=== PATIENT | female | born 1965 | race Caucasian/White ===

== ENCOUNTER 2016-08-12 11:12 | Emergency (ER) | payer SELFPAY ==
[~2016-08-12] VITALS: Ht 167.6 cm; Wt 115.0 kg
[~2016-08-12 11:12] MED LIST: ALEVE220 MG PO; ASPIRIN81 M2 PO; ATARAX,VISTARIL25 MG PO; ATIVAN0.5 MG PO; AUGMENTIN875 MG PO; Aspirin E.C. PO; BACTRIM,SEPT1 TABLET PO; BUSPIRONE; CARAFATE1 GM PO; CELEXA40 MG PO; CHLORDIAZEPOXIDE PO; CITALOPRAM HBR40 MG PO; ELIMITE 5% CREA60 GM TP; EXCEDRIN MIGRA1 EAC3 PO; FIORICET 50-301 EACH PO; GLUCOPHAGE500 MG PO; GLUCOVANCE 21 TABLET PO; GLUCOVANCE 51 TABLET PO; GLYBURIDE-METF1 EAC3 PO; Glucovance 5/500 PO; HYDROCHLOROTHIA50 MG PO; HYDROCODON-ACE1 EAC7 PO; INVOKANA100 MG PO; INVOKANA300 MG PO; LASIX40 MG PO; LEVAQUIN500 MG PO; LISINOPRIL40 MG PO; METFORMIN HCL500 MG PO; METOCLOPRAMIDE10 MG PO; NORCO 5/3251 TABLET PO; PANTOPRAZOLE SO40 MG PO; PREDNISONE50 MG PO; PROTONIX40 MG PO; REGLAN10 MG PO; SUCRALFATE1 GM PO; TRAZODONE HCL50 MG PO; VICTOZA 2-0.6 MG/0.1 SC; VIIBRYD10 MG PO; VITAMIN B122500 MCG PO; Zestril,Prinivil PO
[2016-08-12 12:11] LABS: HEMATOCRIT 38.7 % (36.0-46.0); MCH 28.6 PG (29.0-34.0); MCHC 32.8 G/DL (30.0-36.0); MCV 87.2 FL (83-99); MEAN PLAT.VOLUME 9.8 uM^3 (9.5-12.4); PLATELET COUNT 325 K/uL (156-360); RBC DIS.WIDTH-CV 12.8 % (11.8-14.6); RBC DIS.WIDTH-SD 40.6 % (39-53); RED BLOOD COUNT 4.44 M/uL (3.80-5.20); WHITE BLOOD COUNT 8.4 K/uL (4.1-10.2)
[2016-08-12 12:23] LABS: CHLORIDE 104 mEq/L (99-109); POTASSIUM 3.8 mEq/L (3.7-5.4); SODIUM 137 mEq/L (136-147)
[2016-08-12 12:25] LABS: GLUCOSE 221 mg/dL (70-99)
[2016-08-12 12:26] LABS: ANION GAP 13 MEQ/L (2-14)
[2016-08-12 12:29] LABS: GFR ESTIMATE (CALCULATED) > 59 mL/min/; UREA NITROGEN (BUN) 10 mg/dL (9-23)
[2016-08-12 12:52] LABS: ADD MIUA? NO; BILIRUBIN NEGATIVE; BLOOD NEGATIVE; COLOR STRAW ((YELLOW)); GLUCOSE (STRIP) >=500; KETONES NEGATIVE; LEUKOCYTES NEGATIVE; NITRITE NEGATIVE; PROTEIN (STRIP) NEGATIVE; SPECIFIC GRAVITY 1.036 (1.000-1.030); UCUL ADDED? NO; UROBILINOGEN 0.2 MG/DL (0.2-1.0)
[2016-08-12 13:18] LABS: TOTAL BILIRUBIN 0.4 mg/dL (0.0-1.0)
[2016-08-12 13:19] LABS: ALKALINE PHOSPHATASE 59 IU/L (3-129)
[2016-08-12 13:21] LABS: DIRECT BILIRUBIN 0.2 mg/dL (0.0-0.3)
[2016-08-12 13:23] LABS: LIPASE 22 U/L (1.0-51.0)
[2016-08-12 13:28] LABS: QUANTITATIVE HCG < 4.0 MIU/ML
[2016-08-12] MEDS ORDERED: BACTRIM,SEPT1 TABLET PO (14:16)
[2016-08-12] MEDS ORDERED: MORPHINE SULFAT15 MG PO (14:16)
[2016-08-12] MEDS ORDERED: MOBIC15 MG PO (14:16)
[2016-08-12 15:14] LABS: TROP-I INTERPRETATION NEGATIVE; TROPONIN-I < 0.01 ng/mL (0.0-0.30)
[2016-08-12 17:42] LABS: TROP-I INTERPRETATION NEGATIVE; TROPONIN-I < 0.01 ng/mL (0.0-0.30)
[2016-08-12 18:12] VITALS: BP 111/70
== END 2016-08-12 18:13 | disposition home or self-care (01) ==
LOC: EME 11:12
PROVIDERS: Emergency Medicine
DX: N12 Tubulo-interstitial nephritis, not specified as acute or chronic (principal); R07.89 Other chest pain; E11.65 Type 2 diabetes mellitus with hyperglycemia; K21.9 Gastro-esophageal reflux disease without esophagitis
CPT/HCPCS: 71020; 74176; 80048; 80076; 81003; 83690; 84484; 84702; 85027; 93005; 99281; 99285; J2270; J2405; J3010; S0028

== ENCOUNTER 2017-04-25 18:37 | Emergency (ER) | payer OTHER ==
[~2017-04-25] VITALS: Ht 167.6 cm; Wt 115.9 kg
[~2017-04-25 18:37] MED LIST changes: +MOBIC15 MG PO; +MORPHINE SULFAT15 MG PO
[2017-04-25 21:29] LABS: MCH 28.7 PG (29.0-34.0); MCHC 33.3 G/DL (30.0-36.0); MCV 86.1 FL (83-99); MEAN PLAT.VOLUME 9.8 uM^3 (9.5-12.4); PLATELET COUNT 320 K/uL (156-360); RBC DIS.WIDTH-CV 13.2 % (11.8-14.6); RBC DIS.WIDTH-SD 41.1 % (39-53); RED BLOOD COUNT 4.53 M/uL (3.80-5.20)
[2017-04-25 21:37] LABS: CHLORIDE 100 mEq/L (99-109); POTASSIUM 4.1 mEq/L (3.7-5.4); SODIUM 138 mEq/L (136-147)
[2017-04-25 21:39] LABS: GLUCOSE 146 mg/dL (70-99)
[2017-04-25 21:41] LABS: ANION GAP 14 MEQ/L (2-14)
[2017-04-25 21:43] LABS: GFR ESTIMATE (CALCULATED) > 59 mL/min/
[2017-04-25 21:44] LABS: UREA NITROGEN (BUN) 11 mg/dL (9-23)
[2017-04-26] MEDS ORDERED: MOTRIN800 MG PO (01:17)
[2017-04-26] MEDS ORDERED: ULTRAM50 MG PO (01:17)
[2017-04-26 02:03] VITALS: BP 135/90
== END 2017-04-26 02:04 | disposition home or self-care (01) ==
LOC: EME 18:37
DX: H57.11 Ocular pain, right eye (principal); R51 Headache; E11.9 Type 2 diabetes mellitus without complications; K21.9 Gastro-esophageal reflux disease without esophagitis; F41.9 Anxiety disorder, unspecified; Z88.5 Allergy status to narcotic agent
CPT/HCPCS: 70450; 71020; 80048; 85027; 93005; 99281; 99285; J1885

== ENCOUNTER 2017-08-26 09:58 | Emergency (ER) | payer OTHER ==
[~2017-08-26] VITALS: Ht 167.6 cm; Wt 106.0 kg
[~2017-08-26 09:58] MED LIST changes: +MOTRIN800 MG PO; +ULTRAM50 MG PO
[2017-08-26 10:50] LABS: HEMATOCRIT 39.5 % (36.0-46.0); MCH 28.7 PG (29.0-34.0); MCHC 32.9 G/DL (30.0-36.0); MCV 87.2 FL (83-99); PLATELET COUNT 300 K/uL (156-360); RBC DIS.WIDTH-CV 12.9 % (11.8-14.6); RBC DIS.WIDTH-SD 40.8 % (39-53); RED BLOOD COUNT 4.53 M/uL (3.80-5.20); WHITE BLOOD COUNT 10.4 K/uL (4.1-10.2)
[2017-08-26 10:55] LABS: APPEARANCE CLEAR ((CLEAR)); BILIRUBIN NEGATIVE; BLOOD NEGATIVE; COLOR STRAW ((YELLOW)); GLUCOSE (STRIP) >=500; KETONES NEGATIVE; LEUKOCYTES NEGATIVE; NITRITE NEGATIVE; PROTEIN (STRIP) NEGATIVE; SPECIFIC GRAVITY 1.029 (1.000-1.030); UCUL ADDED? NO; UROBILINOGEN 0.2 MG/DL (0.2-1.0)
[2017-08-26 11:01] LABS: ALBUMIN 4.5 g/dL (3.2-4.8); CHLORIDE 101 mEq/L (99-109); POTASSIUM 4.2 mEq/L (3.7-5.4); SODIUM 137 mEq/L (136-147)
[2017-08-26 11:03] LABS: GLUCOSE 97 mg/dL (70-99); TOTAL PROTEIN 7.6 g/dL (6.4-8.3)
[2017-08-26 11:05] LABS: TOTAL BILIRUBIN 0.4 mg/dL (0.0-1.0)
[2017-08-26 11:07] LABS: ALKALINE PHOSPHATASE 58 IU/L (3-129); CREATININE 0.7 mg/dL (0.6-1.3); GFR ESTIMATE (CALCULATED) > 59 mL/min/
[2017-08-26 11:08] LABS: UREA NITROGEN (BUN) 13 mg/dL (9-23)
[2017-08-26 11:09] LABS: AST (GOT) 23 IU/L (2-34)
[2017-08-26 11:10] LABS: ALT (GPT) 26 IU/L (3-49)
[2017-08-26 11:16] LABS: QUANTITATIVE HCG < 4.0 MIU/ML
[2017-08-26 11:48] LABS: LIPASE 16 U/L (1.0-51.0)
[2017-08-26] MEDS ORDERED: CITRATE OF MAG296 ML PO (13:17)
[2017-08-26] MEDS ORDERED: BENTYL20 MG PO (13:18)
[2017-08-26 14:02] VITALS: BP 110/71
== END 2017-08-26 14:04 | disposition home or self-care (01) ==
LOC: EME 09:58
PROVIDERS: Physician Assistant
DX: R10.9 Unspecified abdominal pain (principal); K21.9 Gastro-esophageal reflux disease without esophagitis; E11.9 Type 2 diabetes mellitus without complications; F41.9 Anxiety disorder, unspecified; Z90.49 Acquired absence of other specified parts of digestive tract; Z88.5 Allergy status to narcotic agent
CPT/HCPCS: 74177; 80053; 81003; 82948; 83690; 84702; 85027; 99281; 99284; J7030

== ENCOUNTER 2017-09-02 15:35 | Emergency (ER) | payer OTHER ==
[~2017-09-02] VITALS: Ht 167.6 cm; Wt 103.1 kg
[~2017-09-02 15:35] MED LIST changes: +BENTYL20 MG PO; +CITRATE OF MAG296 ML PO
[2017-09-02 16:21] LABS: APPEARANCE CLEAR ((CLEAR)); BILIRUBIN NEGATIVE; BLOOD NEGATIVE; COLOR YELLOW ((YELLOW)); GLUCOSE (STRIP) >=500; KETONES NEGATIVE; LEUKOCYTES NEGATIVE; NITRITE NEGATIVE; PROTEIN (STRIP) NEGATIVE; SPECIFIC GRAVITY 1.032 (1.000-1.030); UCUL ADDED? NO; UROBILINOGEN 0.2 MG/DL (0.2-1.0)
[2017-09-02 16:34] LABS: HEMATOCRIT 40.4 % (36.0-46.0); HEMOGLOBIN 13.1 G/DL (11.9-15.5); MCH 28.7 PG (29.0-34.0); MCHC 32.4 G/DL (30.0-36.0); MCV 88.6 FL (83-99); PLATELET COUNT 310 K/uL (156-360); RBC DIS.WIDTH-CV 12.9 % (11.8-14.6); RBC DIS.WIDTH-SD 41.8 % (39-53); RED BLOOD COUNT 4.56 M/uL (3.80-5.20); WHITE BLOOD COUNT 12.4 K/uL (4.1-10.2)
[2017-09-02 16:50] LABS: ALBUMIN 4.5 g/dL (3.2-4.8); CHLORIDE 104 mEq/L (99-109); POTASSIUM 4.1 mEq/L (3.7-5.4); SODIUM 139 mEq/L (136-147)
[2017-09-02 16:52] LABS: GLUCOSE 112 mg/dL (70-99); TOTAL PROTEIN 7.7 g/dL (6.4-8.3)
[2017-09-02 16:54] LABS: TOTAL BILIRUBIN 0.4 mg/dL (0.0-1.0)
[2017-09-02 16:56] LABS: ALKALINE PHOSPHATASE 58 IU/L (3-129); CREATININE 0.7 mg/dL (0.6-1.3); GFR ESTIMATE (CALCULATED) > 59 mL/min/
[2017-09-02 16:57] LABS: UREA NITROGEN (BUN) 13 mg/dL (9-23)
[2017-09-02 16:58] LABS: AST (GOT) 22 IU/L (2-34)
[2017-09-02 16:59] LABS: ALT (GPT) 24 IU/L (3-49)
[2017-09-02 17:07] LABS: QUANTITATIVE HCG < 4.0 MIU/ML
[2017-09-02 22:47] LABS: LIPASE 24 U/L (1.0-51.0)
[2017-09-02 23:34] VITALS: BP 122/71
[2017-09-03 10:22] LABS: HEMOGLOBIN A1c (GLYCOHEMOGLOB) 6.4 % (Below 5.7)
== END 2017-09-02 23:35 | disposition home or self-care (01) ==
LOC: EXP 15:35 → EME 15:35 → EXP 23:35
PROVIDERS: Nurse Practitioner Family
DX: K59.00 Constipation, unspecified (principal); E11.9 Type 2 diabetes mellitus without complications; Z79.84 Long term (current) use of oral hypoglycemic drugs; Z87.19 Personal history of other diseases of the digestive system; K21.9 Gastro-esophageal reflux disease without esophagitis; F41.9 Anxiety disorder, unspecified; Z88.5 Allergy status to narcotic agent
CPT/HCPCS: 74018; 80053; 81003; 82948; 83036; 83605; 83690; 84702; 85027; 99281; 99285; J0500; J1885; J7070

== ENCOUNTER 2017-11-25 07:37 | Emergency (ER) | payer OTHER ==
[~2017-11-25] VITALS: Ht 167.6 cm; Wt 108.6 kg
[2017-11-25 09:04] LABS: BASOPHIL (%) 0.7 % (0-1); BASOPHIL COUNT 0.1 K/uL (0-0.1); EOSINOPHIL (%) 2.7 % (0-5); EOSINOPHIL COUNT 0.2 K/uL (0-0.3); HEMATOCRIT 39.4 % (36.0-46.0); HEMOGLOBIN 13.1 G/DL (11.9-15.5); IMMATURE GRANULOCYTE (%) 0.2 % (0.0-0.7); LYMPHOCYTE (%) 45.6 % (15-42); LYMPHOCYTE COUNT 3.7 K/uL (1.0-2.8); MCH 28.9 PG (29.0-34.0); MCHC 33.2 G/DL (30.0-36.0); MONOCYTE (%) 8.1 % (3-12); MONOCYTE COUNT 0.7 K/uL (0-0.8); NEUTROPHIL (%) 42.7 % (45-76); NEUTROPHIL COUNT 3.5 K/uL (1.8-6.4); PLATELET COUNT 299 K/uL (156-360); RBC DIS.WIDTH-CV 13.2 % (11.8-14.6); RBC DIS.WIDTH-SD 41.7 % (39-53); RED BLOOD COUNT 4.53 M/uL (3.80-5.20); WHITE BLOOD COUNT 8.1 K/uL (4.1-10.2)
[2017-11-25 09:15] LABS: CHLORIDE 103 mEq/L (99-109); POTASSIUM 5.1 mEq/L (3.7-5.4); SODIUM 138 mEq/L (136-147)
[2017-11-25 09:16] LABS: GLUCOSE 111 mg/dL (70-99)
[2017-11-25 09:20] LABS: CREATININE 0.7 mg/dL (0.6-1.3); GFR ESTIMATE (CALCULATED) > 59 mL/min/
[2017-11-25 09:21] LABS: UREA NITROGEN (BUN) 18 mg/dL (9-23)
[2017-11-25] MEDS ORDERED: ANTIVERT25 MG PO (11:51)
[2017-11-25] MEDS ORDERED: FIORICET 50-301 EAC1 PO (11:51)
[2017-11-25 12:21] VITALS: BP 131/82
== END 2017-11-25 12:37 | disposition home or self-care (01) ==
LOC: EME 07:37
PROVIDERS: Emergency Medicine
DX: G43.909 Migraine, unspecified, not intractable, without status migrainosus (principal); E11.9 Type 2 diabetes mellitus without complications; K21.9 Gastro-esophageal reflux disease without esophagitis; F41.9 Anxiety disorder, unspecified; Z90.49 Acquired absence of other specified parts of digestive tract; Z88.5 Allergy status to narcotic agent
CPT/HCPCS: 70450; 71045; 80048; 85025; 93005; 99281; 99285; J2270; J2405; J2765; J7030

== ENCOUNTER 2017-12-03 06:58 | Emergency (ER) | payer OTHER ==
[~2017-12-03] VITALS: Ht 167.6 cm; Wt 108.0 kg
[~2017-12-03 06:58] MED LIST changes: +ANTIVERT25 MG PO; +FIORICET 50-301 EAC1 PO
[2017-12-03] MEDS ORDERED: PERCOCET 5/31 TABLET PO (14:00)
[2017-12-03] MEDS ORDERED: FLEXERIL10 MG PO (14:00)
[2017-12-03 14:31] VITALS: BP 115/69
== END 2017-12-03 14:34 | disposition home or self-care (01) ==
LOC: EME 06:58
DX: S76.911A Strain of unspecified muscles, fascia and tendons at thigh level, right thigh, initial encounter (principal); S80.11XA Contusion of right lower leg, initial encounter; W18.40XA Slipping, tripping and stumbling without falling, unspecified, initial encounter; Y99.0 Civilian activity done for income or pay; Y92.811 Bus as the place of occurrence of the external cause; E11.9 Type 2 diabetes mellitus without complications; Z88.5 Allergy status to narcotic agent
CPT/HCPCS: 73718; 99281; 99285; J2405; J7030